=== PATIENT | female | born 1950 | race Caucasian/White ===

== ENCOUNTER → 2016-12-18 | Outpatient (CLI) | payer MEDICARE ==
--- NOTE | ~2016-12-18 | MY11 ---
[facility] A Service of [facility] RADIOLOGY TEXT RESULTS PATIENT: SANTOS LESLIE LOCATION: [facility] : 50 UNIT #: [id number] AGE: [address]: Lizette Johnson MD SEX: F ORDER DR: [id number] [address] [id number] [id number] O MR#: [id number] Acc #: [id number] NAME: SANTOS LESLIE : 1950 SEX: F STUDY DATE/TIME: 12/18/2016 13:16 UNIT: [facility] ROOM: STUDY DESCRIPTION: MY Mammogram Screening [facility] Attending Physician: Lizette oJhnson M.D. Ordering Physician: Lizette Johnson M.D. Primary Care Physician: Lizette Johnson M.D. MEDICAL IMAGING REPORT This report is preliminary unless electronic signature is present. EXAM Digital screening mammogram, 12/18/2016, [facility]. HISTORY 66-year-old woman, positive family history, three paternal aunts. Annual screen. COMPARISON STUDIES Mammograms date to 12/31/2006, with most recent 08/19/2015. FINDINGS Digital imaging of each breast was completed utilizing a two-view examination of each breast in craniocaudal and mediolateral-oblique projections. Review and interpretation of digital mammograms include a second review in conjunction with FDA-approved CAD device. There is a normal parenchymal presentation bilaterally consistent with the patient's age. There are no breast masses imaged and no parenchymal asymmetry is visualized. There are no suspicious microcalcifications and I see no focal architectural disturbance. IMPRESSION Negative screening digital mammogram. One-year followup recommended. Patients over the age of 40 are entered into a reminder system with target due date for the next mammogram. A result letter will also be sent to the patient. BIRADS: 1 Negative. Dictated by... Deepak Crisostomo M.D. [facility] A Service of [facility] RADIOLOGY TEXT RESULTS PATIENT: SANTOS LESLIE LOCATION: [facility] : 50 UNIT #: [id number] AGE: [address]: Lizette Johnson MD SEX: F ORDER DR: THIS IS AN ELECTRONICALLY VERIFIED REPORT Deepak Crisostomo M.D. at 12/18/2016 3:38 PM Cyndi TD: 12/18/2016 15:34 JOB #: [id number] MEDICAL IMAGING REPORT Page 1 of 1
== END | disposition home or self-care (01) ==
LOC: SMAM 12:39
DX: Z12.31 Encounter for screening mammogram for malignant neoplasm of breast (principal); Z80.3 Family history of malignant neoplasm of breast
CPT/HCPCS: G0202